=== PATIENT | male | born 1930 | race Caucasian/White ===

== ENCOUNTER 2016-09-30 13:13 | Emergency (ER) | payer MEDICARE, OTHER ==
[~2016-09-30] VITALS: Ht 170.2 cm; Wt 71.2 kg
[~2016-09-30 13:13] MED LIST: AMLO5TAB4 PO; ATEN25TA PO; EZET10TA PO; HYDR1TAB GT; IBUP200C5 PO; OMEG500C3 PO; TAMS-12 PO
--- NOTE | 2016-09-30 13:13 | NUR ---
1312- PT TO CT
--- NOTE | 2016-09-30 13:13 | NUR ---
BIB [facility],SLURRED SPEECH,L FACIAL DROOP AND LEFT SIDED WEAKNESS WHILE EATING, LKW TIME=30 MINUTES PTC([id number]),DA=994. PLACED ON MONITOR. MD AT BEDSIDE FOR EVAL
--- NOTE | 2016-09-30 13:13 | NUR ---
CODE STROKE CALLED AT 1300
--- NOTE | 2016-09-30 13:15 | NUR ---
CALLED [facility] TELESTROKE [facility]OTLINE, SPOKE WITH GREGOR, PRESENTED PT, AWAITING CALL BACK FROM (NEUROLOGIST)
--- NOTE | 2016-09-30 13:21 | NUR ---
PT BACK FROM CT
[2016-09-30 13:25] LABS: BASOPHILS % (AUTO) 0.3 % (0.0-2.0); EOSINOPHILS # (AUTO) 0.5 /CMM (0.0-0.7); EOSINOPHILS % (AUTO) 5.3 % (0.0-6.0); HEMATOCRIT 37 % (39-51); HEMOGLOBIN 12.6 g/dL (13.5-17.5); LYMPHOCYTES # (AUTO) 1.9 /CMM (0.8-4.8); LYMPHOCYTES % (AUTO) 20.8 % (20.0-44.0); MEAN CORPUSCULAR HEMOGLOBIN 30 PG (26.0-33.0); MEAN CORPUSCULAR HGB CONC 35 g/dl (31.0-36.0); MEAN CORPUSCULAR VOLUME 87 fL (80-96); MONOCYTES # (AUTO) 0.5 /CMM (0.1-1.30); MONOCYTES % (AUTO) 5.2 % (2.0-12.0); NEUTROPHILS # (AUTO) 6.3 /CMM (1.8-8.9); NEUTROPHILS % (AUTO) 68.4 % (43.0-81.0); PLATELET COUNT (AUTO) 223 /CMM (150-450); RDW COEFFICIENT OF VARIATION 14.4 (11.5-15.0); RED BLOOD CELL COUNT(AUTO) 4.23 MIL/uL (4.5-6.0); WHITE BLOOD COUNT (AUTO) 9.1 K/uL (4.3-11.0)
--- NOTE | 2016-09-30 13:28 | NUR ---
NEUROLOGIST AT MONITOR SCREEN EVALUATING PT
[2016-09-30 13:39] LABS: CARBON DIOXIDE 25 mmol/L (21-32); CHLORIDE 107 mmol/L (98-107); CREATININE 1.2 mg/dL (0.6-1.3); GLUCOSE 151 mg/dL (74-106); POTASSIUM 4.5 mmol/L (3.5-5.1); SODIUM SERUM 138 mmol/L (136-145); UREA NITROGEN, BLOOD 21 mg/dL (7-18)
[2016-09-30 13:45] LABS: TROPONIN I < 0.017 ng/mL (0.00-0.056)
[2016-09-30] MEDS ORDERED: IV SET PRIMARY PUMP SET 1 EA INFUS.SET MC ONE (13:54)
[2016-09-30] MEDS ORDERED: IV NS 0.9% 250 ML IV ONE (13:55)
[2016-09-30] MEDS ORDERED: CT SWABBABLE VALVE TRANS SET 1 EA INFUS.SET MC ONE (13:55)
--- NOTE | 2016-09-30 13:55 | NUR ---
CALLED [facility] LINE, SPOKE WITH SHANE, PRESENTED PT, FAXED FACESHEET AND CT RESULT TO [phone]
[2016-09-30] MEDS ORDERED: IOHEXOL-350 100 ML VIAL IV ONE (13:56)
[2016-09-30 13:58] LABS: INR 0.93 (0.87-1.13); PROTHROMBIN TIME 9.9 SECS (9.5-12.7)
[2016-09-30] MEDS ORDERED: ALTEPLASE 100 MG/VIAL VIAL IV ONE (14:00)
--- NOTE | 2016-09-30 14:15 | NUR ---
REFAXED FACESHEET TO [phone]/ [phone]
--- NOTE | 2016-09-30 14:42 | NUR ---
SHANE CALLED TRANSPORT WILL COME [phone]
--- NOTE | 2016-09-30 15:24 | NUR ---
RENAE STEWART RN GAVE REPORT TO [facility]
[2016-09-30 15:25] VITALS: BP 152/72
--- NOTE | 2016-09-30 15:25 | NUR ---
AMBULANCE AT BEDSIDE FOR TRANSPORT ACLS PROTOCOL .
== END 2016-09-30 15:29 | disposition short-term general hospital (02) ==
LOC: ER 13:14
DX: I63.9 Cerebral infarction, unspecified (principal); E11.9 Type 2 diabetes mellitus without complications; I10 Essential (primary) hypertension
CPT/HCPCS: 36415; 37195; 70450; 70496; 70498; 71010; 80048; 82962; 84484; 85025; 85730; 93005; 99285; A4606; J2997; J7050; Q9967; Z7610